=== PATIENT | male | born 1990 | race Caucasian/White ===

== ENCOUNTER → 2019-04-05 | Outpatient (CLI) | payer OTHER ==
--- NOTE | 2019-04-05 13:20 | REP ---
PA and lateral chest three views including two PA and single lateral views: There are no comparisons. The lung jaquez are clear. The cardiac size is normal. The liliana, mediastinum, and skeletal structures are unremarkable. Impression: Negative PA and lateral chest. Electronically Signed by Seth Harman MD 04/05/2019 01:12 P
== END ==
LOC: M CLY 11:38
PROVIDERS: ATTEND Family Medicine
DX: R05 Cough (principal)

== ENCOUNTER → 2020-04-22 | Outpatient (CLI) | payer OTHER ==
--- NOTE | 2020-04-22 13:51 | REP ---
INDICATION: M54.6, THORACIC SPINE PAIN COMPARISON: None. TECHNIQUE: AP, lateral, flexion/extension, bilateral oblique, and open-mouth views. FINDINGS: Very subtle straightening/reversal of normal lordosis through the C2-C6 level noted. Alignment is maintained through flexion and extension. There is no evidence for acute fracture / compression injury or subluxation. No significant degenerative changes are appreciated. Oblique views demonstrate patent neural foramen. Open mouth view demonstrates normal C1-C2 articulation and odontoid process. IMPRESSION: Relatively normal cervical spine series. No significant degenerative changes are appreciated. <Electronically signed by Jose Maguire > 04/22/20 [id number]
--- NOTE | 2020-04-22 13:58 | REP ---
INDICATION: M54.2, CERVICALGIA COMPARISON: None. TECHNIQUE: AP, lateral, and swimmers views. FINDINGS: Alignment and kyphosis is maintained. Vertebral bodies intact. No acute fracture / compression injury or subluxation. No degenerative changes. Paravertebral soft tissues are normal. IMPRESSION: Normal thoracic spine series. <Electronically signed by Jose Maguire > 04/22/20 [id number]
== END ==
LOC: M CLY 11:29
PROVIDERS: ATTEND Family Medicine
DX: M54.6 Pain in thoracic spine (principal); M54.2 Cervicalgia

== ENCOUNTER → 2020-08-23 | Outpatient (CLI) | payer OTHER ==
--- NOTE | 2020-08-23 12:10 | REPVR ---
PROCEDURE INFORMATION: Exam: MR Cervical Spine Without Contrast Exam date and time: 08/23/2020 9:40 AM Age: 30 years old Clinical indication: Pain; Cervicalgia TECHNIQUE: Imaging protocol: Multiplanar magnetic resonance images of the cervical spine without contrast. COMPARISON: CR SPINE CERVICAL COMPL 04/22/2020 11:36 AM FINDINGS: Vertebrae: Straightening of the upper cervical lordosis may be positional or due to muscle spasm. No acute fracture seen. Spinal cord: Limitations assessing the cervical cord on the T2 weighted imaging due to motion artifacts. No obvious myelopathy. The intervertebral discs are preserved in height and signal intensity. C2-C3: No significant disc disease. No significant spinal stenosis. C3-C4: No significant disc disease. No significant spinal stenosis. C4-C5: No significant disc disease. No significant spinal stenosis. C5-C6: Slight disc bulge. No stenoses. C6-C7: No significant disc disease. No significant spinal stenosis. C7-T1: No significant disc disease. No significant spinal stenosis. Soft tissues: Unremarkable. Vertebral arteries: Expected flow voids in the vertebral arteries. IMPRESSION: 1. Images are mildly motion degraded. 2. No acute findings or degenerative changes identified. Electronically signed by: Dasia Reynolds On 08/23/2020 12:10:23 PM
== END ==
LOC: M RAD 09:01
PROVIDERS: ATTEND Physician Assistant
DX: M54.2 Cervicalgia (principal)